=== PATIENT | male | born 1965 | race Caucasian/White ===

== ENCOUNTER 2017-01-11 07:00 | Emergency (ER) | payer MEDICAID, OTHER ==
[~2017-01-11] VITALS: Ht 180.3 cm; Wt 62.1 kg
[~2017-01-11 07:00] MED LIST: ALBU8.5H8 IH
--- NOTE | 2017-01-11 07:25 | NUR ---
DR DAWSON AT THE BEDSIDE FOR EVAL AND EXAM.
[2017-01-11] MEDS ORDERED: CHLORDIAZEPOXIDE HCL 25 MG CAPSULE PO ONE (07:30)
[2017-01-11] MEDS ORDERED: CHLORDIAZEPOXIDE HCL 25 MG CAPSULE ONE (07:42)
--- NOTE | 2017-01-11 08:20 | NUR ---
PT STATES FEELING BETTER AND HIS TREMORS ARE GONE.
--- NOTE | 2017-01-11 08:25 | NUR ---
Patient discharged to home in stable conditon. Written and verbal after care instructions given. Patient verbalizes understanding of instructions.
[2017-01-11 08:26] VITALS: BP 121/73
== END 2017-01-11 08:26 | disposition home or self-care (01) ==
LOC: ER 07:00
DX: F10.239 Alcohol dependence with withdrawal, unspecified (principal); B86 Scabies; F43.10 Post-traumatic stress disorder, unspecified; I10 Essential (primary) hypertension; J44.9 Chronic obstructive pulmonary disease, unspecified; F42.9 Obsessive-compulsive disorder, unspecified; Z59.0 Homelessness; Z82.3 Family history of stroke; Z82.49 Family history of ischemic heart disease and other diseases of the circulatory system
CPT/HCPCS: A4663

== ENCOUNTER 2018-05-20 08:45 | Emergency (ER) | payer MEDICAID ==
[~2018-05-20] VITALS: Ht 180.3 cm; Wt 63.5 kg
--- NOTE | 2018-05-20 09:05 | NUR ---
Dr Garg at the bedside for MSE.
--- NOTE | 2018-05-20 09:15 | NUR ---
Patient given written and verbal discharge instructions. Patient verbalizes understanding of instructions. Patient is ambulatory with steady gait. Refuses offer of intermediate placement. Patient given list of available shelters in surrounding area.
[2018-05-20 09:16] VITALS: BP 124/79
== END 2018-05-20 09:16 | disposition home or self-care (01) ==
LOC: ER 08:45
DX: B86 Scabies (principal); I10 Essential (primary) hypertension; J44.9 Chronic obstructive pulmonary disease, unspecified; Z59.0 Homelessness
CPT/HCPCS: A4663

== ENCOUNTER 2018-06-24 07:53 | Emergency (ER) | payer MEDICAID ==
[~2018-06-24] VITALS: Ht 180.3 cm; Wt 63.5 kg
--- NOTE | 2018-06-24 08:21 | NUR ---
DR JAUREGUI AT BEDSIDE FOR EVALUATION
--- NOTE | 2018-06-24 08:30 | NUR ---
mse completed, pt d/c'd home, aci/rx 3 given. pty ambulated w/o diff/took all belongings
[2018-06-24 08:31] VITALS: BP 178/71
== END 2018-06-24 08:32 | disposition home or self-care (01) ==
LOC: ER 07:53
DX: B86 Scabies (principal); J44.9 Chronic obstructive pulmonary disease, unspecified; M26.609 Unspecified temporomandibular joint disorder, unspecified side; I10 Essential (primary) hypertension; Z59.0 Homelessness; Z79.899 Other long term (current) drug therapy
CPT/HCPCS: A4663

== ENCOUNTER 2018-07-12 04:47 | Emergency (ER) | payer MEDICAID ==
[~2018-07-12] VITALS: Ht 180.3 cm; Wt 62.1 kg
--- NOTE | 2018-07-12 05:04 | NUR ---
Pt ambulated in ER with stable gait with the c/o cough x 3 weeks. Pt is AAO x 4 and speaking in complete sentences. Upon assessment, pt respirations even and unlabored. No SOB. Pt denies CP and N/V/D. Safe environment implemented.
--- NOTE | 2018-07-12 05:09 | NUR ---
Dr. Yepez at bedside for MSE.
[2018-07-12] MEDS ORDERED: LORAZEPAM 1 MG TABLET ONE (05:14)
[2018-07-12] MEDS ORDERED: LORAZEPAM 0.5 MG TABLET PO ONE (05:15)
--- NOTE | 2018-07-12 05:41 | NUR ---
Patient discharged to home in stable conditon. Written and verbal after care instructions given. Patient verbalizes understanding of instructions. Patient provided with snack and water. Homeless waiver form signed by patient and patient states that he will be returning to previous living arrangement. All belongings taken.
[2018-07-12 05:42] VITALS: BP 148/84
== END 2018-07-12 05:41 | disposition home or self-care (01) ==
LOC: ER 04:49
DX: F10.10 Alcohol abuse, uncomplicated (principal); R05 Cough; I10 Essential (primary) hypertension; J44.9 Chronic obstructive pulmonary disease, unspecified; Z59.0 Homelessness; Z79.899 Other long term (current) drug therapy
CPT/HCPCS: 71045; A4663